=== PATIENT | female | born 2000 | race African-American/Black ===

== ENCOUNTER 2024-03-26 21:04 | Emergency (ER) | payer MEDICAID ==
[~2024-03-26] VITALS: Ht 162.6 cm; Wt 57.0 kg
[2024-03-26 21:16] VITALS: BP 105/64; PULSE 94; RESP 16; TEMP 98.4
== END 2024-03-26 22:05 | disposition home or self-care (01) ==
LOC: ER 21:04
DX: S61.218D Laceration without foreign body of other finger without damage to nail, subsequent encounter (principal); J45.909 Unspecified asthma, uncomplicated; Z98.890 Other specified postprocedural states; X58.XXXD Exposure to other specified factors, subsequent encounter
CPT/HCPCS: 99281